=== PATIENT | female | born 1975 | race Caucasian/White ===

== ENCOUNTER → 2018-03-10 | Outpatient (REF) ==
[~2018-03-10] MED LIST: ANTIVERT 25MG25 MG PO; BIRTH CONTROL; ENPRESSE PO; MOTRIN400 MG PO; TYLENOL 325MG325 MG PO
== END ==
LOC: ZLAB.WCH 14:37
DX: Z01.89 Encounter for other specified special examinations (principal)

== ENCOUNTER → 2018-10-27 | Outpatient (CLI) | payer OTHER | LOC: COL.RAD 07:21 | DX: M51.17 Intervertebral disc disorders with radiculopathy, lumbosacral region (principal) ==

== ENCOUNTER → 2020-11-30 | Outpatient (CLI) | payer OTHER | LOC: COL.RAD 09:14 | DX: M25.571 Pain in right ankle and joints of right foot (principal) | CPT/HCPCS: J3301; Q9967 ==